=== PATIENT | female | born 1950 | race Caucasian/White ===

== ENCOUNTER 2018-01-01 13:22 | Emergency (ER) | payer MEDICARE ==
[2018-01-01 13:50] LABS: #Basophils 0.1 thou/uL (0.0-0.2); #Eosinphils 0.2 thou/uL (0.0-0.7); #Lymphocytes 2.4 thou/uL (1.20-3.40); #Monocytes 1.1 thou/uL (0.11-0.59); #Neutrophils 4.7 thou/uL (1.40-6.50); %Basophils 1.4 % (0.0-1.0); %Eosinophils 1.8 % (0.0-10.0); %Lymphocytes 28.5 % (21.0-51.0); %Monocytes 12.7 % (0.0-10.0); %Neutrophils 55.6 % (42.0-75.0); Hemoglobin 13.9 g/dL (12.0-16.0); Mean Corpuscular HGB CONC 34.2 g/dL (32.0-36.0); Mean Corpuscular Hemoglobin 28.8 pg (27.0-31.0); Mean Corpuscular Volume 84.3 fL (78.0-98.0); Mean Platelet Volume 7.4 fL (7.4-10.4); Platelet Count 250 thou/uL (130-400); RBC Distribution Width 11.2 % (11.5-14.5); Red Blood Cell (RBC) Count 4.81 mill/uL (4.20-5.40); White Blood Cell (WBC) Count 8.4 thou/uL (4.8-10.8)
[2018-01-01 13:54] LABS: Amphetamine Not Detected (NotDetected); Barbiturates Screen Not Detected (NotDetected); Benzodiazepine Screen Not Detected (NotDetected); Cocaine Metabolite Screen Not Detected (NotDetected); Medtox Control Line Valid? VALID (VALID); Methadone Not Detected (NotDetected); Methamphetamine Not Detected (NotDetected); Opiate Screen Not Detected (NotDetected); Oxycodone Screen Not Detected (NotDetected); Phencyclidine (PCP) Not Detected (NotDetected); THC/Cannabinoid Screen Not Detected (NotDetected); Tricyclic Screen Not Detected (NotDetected)
[2018-01-01 13:59] LABS: Bilirubin Negative (Negative); Blood, Urine Negative (Negative); Clarity Clear (Clear); Glucose, Urine (Dipstick) Negative (Negative); Leukocyte Negative (Negative); Nitrite Negative (Negative); Protein, Urine (Dipstick) Negative (Neg-Trace); Specific Gravity, Urine 1.005 (1.002-1.036); Urobilinogen 0.2 mg/dL (0.2-1.0)
[2018-01-01 14:08] LABS: ALT (SGPT) 7 U/L (8-55); AST (SGOT) 10 U/L (5-34); Acetaminophen Less than 6.0 mcg/mL (10.0-30.0); Albumin 4.2 g/dL (3.4-4.8); Alcohol Less than 10 mg/dL (Less than 10); Alkaline Phosphatase 35 U/L (40-150); Anion Gap 13 mmol/L (10-20); BUN (Urea Nitrogen) 11 mg/dL (9.8-20.1); Bilirubin, Total 0.3 mg/dL (0.2-1.2); Calc. Creatinine Clearance 0 mL/min (70-130); Calcium 10.2 mg/dL (7.8-10.44); Carbon Dioxide 25 mmol/L (23-31); Chloride 105 mmol/L (98-107); Estimated GFR-MDRD 71; Globulin 2.5 g/dL (2.4-3.5); Glucose 110 mg/dL (80-115); Potassium 3.9 mmol/L (3.5-5.1); Protein, Total 6.7 g/dL (6.0-8.3); Salicylate Less than 8.0 mg/dL (15.0-30.0); Sodium 139 mmol/L (136-145)
[2018-01-01] MEDS ORDERED: Ondansetron ODT 4 MG TAB ONE (14:17)
[2018-01-01] MEDS ORDERED: Lorazepam 0.5 MG TAB ONE (17:03)
== END 2018-01-01 18:32 | disposition short-term general hospital (02) ==
LOC: BURERS 13:22
DX: F31.9 Bipolar disorder, unspecified (principal); R45.6 Violent behavior; F29 Unspecified psychosis not due to a substance or known physiological condition; E10.40 Type 1 diabetes mellitus with diabetic neuropathy, unspecified; E78.5 Hyperlipidemia, unspecified; I10 Essential (primary) hypertension; F41.9 Anxiety disorder, unspecified; Z79.899 Other long term (current) drug therapy; Z79.84 Long term (current) use of oral hypoglycemic drugs
CPT/HCPCS: 36415; 51701; 80053; 80306; 80307; 81003; 83690; 84443; 85025; 94760; Q0162

== ENCOUNTER 2018-12-07 18:01 | Emergency (ER) | payer MEDICARE, MEDICAID ==
[2018-12-07] MEDS ORDERED: diphenhydrAMINE 25 MG CAP ONE (18:29)
[2018-12-07] MEDS ORDERED: Ziprasidone 20 MG CAP ONE (18:30)
--- NOTE | 2018-12-07 21:28 | RAD ---
PORTABLE CHEST: DATE: 12-07-18 An AP portable film at 1823 is presented with no prior films available for comparison. FINDINGS: The heart is normal in size. There is no vascular congestion, edema, or pleural effusion. No lobar in filtrate was seen. Some rounded areas are seen in the right hilum that I believe are all pulmonary ar [place], but there would be an outside chance of this being some enlarged nodes. If the patient is not i mproving, it may be worth a follow up PA chest film in the near term. IMPRESSION: Probably negative study. Slight right hilar prominence, thought it seems more likely to be due to pul monary artery. Consider follow up PA film if the patient is not improving. POS: HOME
== END 2018-12-07 20:20 ==
LOC: BURERS 18:01
DX: R05 Cough (principal); E11.9 Type 2 diabetes mellitus without complications; I10 Essential (primary) hypertension; F41.9 Anxiety disorder, unspecified; F31.9 Bipolar disorder, unspecified; F20.9 Schizophrenia, unspecified; Z79.899 Other long term (current) drug therapy; Z79.4 Long term (current) use of insulin; Z79.51 Long term (current) use of inhaled steroids
CPT/HCPCS: 71045; Q0163

== ENCOUNTER 2018-12-15 14:16 | Emergency (ER) | payer MEDICARE, MEDICAID ==
[2018-12-15 14:51] LABS: Bilirubin Negative (Negative); Blood, Urine Negative (Negative); Clarity Clear (Clear); Glucose, Urine (Dipstick) 500 mg/dL (Negative); Leukocyte Negative (Negative); Nitrite Negative (Negative); Protein, Urine (Dipstick) Negative (Neg-Trace); Urobilinogen 0.2 mg/dL (Less than 2)
[2018-12-15 14:54] LABS: #Basophils 0.1 thou/uL (0.0-0.2); #Eosinphils 0.2 thou/uL (0.0-0.7); #Lymphocytes 2.5 thou/uL (1.20-3.40); #Monocytes 0.8 thou/uL (0.11-0.59); #Neutrophils 4.6 thou/uL (1.40-6.50); %Basophils 1.3 % (0.0-1.0); %Lymphocytes 30.4 % (21.0-51.0); %Neutrophils 56.4 % (42.0-75.0); Hemoglobin 12.6 g/dL (12.0-16.0); Mean Corpuscular HGB CONC 32.2 g/dL (32.0-36.0); Mean Corpuscular Hemoglobin 28.1 pg (27.0-31.0); Mean Corpuscular Volume 87.3 fL (78.0-98.0); Mean Platelet Volume 6.4 fL (7.4-10.4); Platelet Count 390 thou/uL (130-400); RBC Distribution Width 12.5 % (11.5-14.5); Red Blood Cell (RBC) Count 4.48 mill/uL (4.20-5.40); White Blood Cell (WBC) Count 8.2 thou/uL (4.8-10.8)
[2018-12-15 15:08] LABS: ALT (SGPT) 10 U/L (8-55); AST (SGOT) 10 U/L (5-34); Albumin 3.6 g/dL (3.4-4.8); Alkaline Phosphatase 39 U/L (40-110); Anion Gap 16 mmol/L (10-20); BUN (Urea Nitrogen) 8 mg/dL (9.8-20.1); Bilirubin, Total Less than 0.2 mg/dL (0.2-1.2); Calc. Creatinine Clearance 0 mL/min (70-130); Calcium 10.4 mg/dL (7.8-10.44); Carbon Dioxide 27 mmol/L (23-31); Chloride 98 mmol/L (98-107); Estimated GFR-MDRD 68; Globulin 3.1 g/dL (2.4-3.5); Glucose 306 mg/dL (80-115); Potassium 4.4 mmol/L (3.5-5.1); Protein, Total 6.7 g/dL (6.0-8.3); Sodium 137 mmol/L (136-145)
[2018-12-15 15:09] LABS: Acetaminophen Less than 6.0 mcg/mL (10.0-30.0); Alcohol Less than 10 mg/dL (Less than 10); CK (CPK) 40 U/L (29-168); Salicylate Less than 8.0 mg/dL (15.0-30.0)
[2018-12-15 15:23] LABS: Amphetamine Not Detected (NotDetected); Barbiturates Screen Not Detected (NotDetected); Benzodiazepine Screen Not Detected (NotDetected); Cocaine Metabolite Screen Not Detected (NotDetected); Medtox Control Line Valid? VALID (VALID); Methadone Not Detected (NotDetected); Methamphetamine Not Detected (NotDetected); Opiate Screen Not Detected (NotDetected); Oxycodone Screen Not Detected (NotDetected); Phencyclidine (PCP) Not Detected (NotDetected); THC/Cannabinoid Screen Not Detected (NotDetected); Tricyclic Screen Not Detected (NotDetected)
[2018-12-15] MEDS ORDERED: Insulin Regular 300 UNITS/3 ML VIAL ONE (15:31)
[2018-12-15] MEDS ORDERED: Amlodipine 5 MG TAB ONE (17:52)
[2018-12-15] MEDS ORDERED: glipiZIDE 5 MG TAB PO SCH (18:15)
[2018-12-15] MEDS ORDERED: metFORMIN 500 MG TAB PO SCH (18:15)
[2018-12-15] MEDS ORDERED: risperiDONE 0.5 MG TAB PO PRN (19:59)
[2018-12-15] MEDS ORDERED: traZODone HCl 50 MG TAB PO PRN (20:00)
[2018-12-15] MEDS ORDERED: Ibuprofen 600 MG TAB PO PRN (20:01)
[2018-12-15] MEDS ORDERED: Ondansetron ODT 4 MG TAB PO PRN (20:02)
[2018-12-15] MEDS ORDERED: Albuterol Sulfate 2.5 mg/3 ml Neb NEB PRN (20:04)
[2018-12-15] MEDS ORDERED: Dextrose 50% Abboject 50 ML SYRINGE IVP PRN (20:05)
[2018-12-15] MEDS ORDERED: Dextrose 5% in Water 1,000 ML IV PRN (20:05)
[2018-12-15] MEDS ORDERED: Insulin Regular 300 UNITS/3 ML VIAL SC PRN (20:05)
[2018-12-15] MEDS ORDERED: risperiDONE 0.5 MG TAB PO SCH (21:00)
[2018-12-16] MEDS ORDERED: glipiZIDE 5 MG TAB PO SCH (07:30)
[2018-12-16] MEDS ORDERED: metFORMIN 500 MG TAB PO SCH (08:00)
[2018-12-16] MEDS ORDERED: Loratadine 10 MG TAB PO SCH (09:00)
[2018-12-16] MEDS ORDERED: LEVEMIR INSULIN SC SCH (09:00)
[2018-12-16] MEDS ORDERED: Aripiprazole 10 MG TAB PO SCH (09:00)
[2018-12-16] MEDS ORDERED: Amlodipine 5 MG TAB PO SCH (09:00)
== END 2018-12-15 21:56 ==
LOC: BURERS 14:16
DX: F31.9 Bipolar disorder, unspecified (principal); E11.9 Type 2 diabetes mellitus without complications; I10 Essential (primary) hypertension; F41.9 Anxiety disorder, unspecified; F20.9 Schizophrenia, unspecified; Z79.899 Other long term (current) drug therapy; Z79.51 Long term (current) use of inhaled steroids; Z79.4 Long term (current) use of insulin
CPT/HCPCS: 36415; 36416; 80053; 80306; 80307; 81003; 82550; 84443; 85025; 93005; 96361; 96374; J1815